=== PATIENT | male | born 1975 | race Caucasian/White ===

== ENCOUNTER 2025-02-01 15:30 | Emergency (ER) | payer BC, SELFPAY ==
--- NOTE | ~2025-02-01 | US_ITS ---
CLINICAL HISTORY: calf pain, swelling Venous duplex ultrasound left lower extremity Comparison: None provided Findings: The visualized deep veins are fully compressible with normal Doppler color flow and spectral tracings. Left peroneal vein not visualized. No popliteal cyst. There is a 1.9 cm x 0.5 cm x 1.2 cm left inguinal lymph node. IMPRESSION: 1. Negative for left lower extremity deep vein thrombosis. 2. Left inguinal lymph node likely reactive but nonspecific. This document has been electronically signed by: Dipika Dao MD on 02/01/2025 17:35:16
[2025-02-01 15:52] VITALS: BP 148/75; PULSE 69; RESP 18; TEMP 36.7; O2SAT 97; BMI 35.5
--- NOTE | 2025-02-01 15:52 | ED.SKABFB ---
HPI - Skin/Abscess/Foreign Bdy General Chief complaint: General Medical Stated complaint: LLL Edema, redness, warm to touch Time Seen by Provider: 02/01/25 17:39 Source: patient and other (program staff) Mode of arrival: ambulatory Limitations: no limitations History of Present Illness ED Provider: Nasima Do PA-C HPI narrative: Patient is a 49 year old male with a history of IV drug use and recurrent left lower leg cellulitis presenting to the emergency department today with left lower leg swelling, pain, and redness. Patient states that he is currently a treatment facility in the area but he is from [place]. Patient states that he has a history of IV drug use and has had left lower leg cellulitis before. Patient states that his left lower leg has been swollen, red, and hot over the last few days. Patient denies any other complaints at this time. Related Data Previous Rx's ?Medication ?Instructions ?Recorded cephalexin 500 mg capsule 500 mg PO Q6H 7 days #28 caps 02/01/25 doxycycline hyclate 100 mg tablet 100 mg PO BID 7 days #14 tabs 02/01/25 Allergies Allergy/AdvReac Type Severity Reaction Status Date / Time No Known Allergies Allergy Verified 02/01/25 15:54 Review of Systems Constitutional: Constitutional: Reports as per HPI Eyes: Eyes: Reports as per HPI ENT: Reports as per HPI Cardiovascular: Cardiovascular: Reports as per HPI Respiratory: Respiratory: Reports as per HPI Gastrointestinal: Gastrointestinal: Reports as per HPI Genitourinary: Genitourinary: Reports as per HPI Musculoskeletal: Musculoskeletal: Reports as per HPI Integumentary/Breasts: Skin/Breast: Reports as per HPI Neurologic: Reports as per HPI Psychiatric: Psychiatric: Reports as per HPI Endocrine: Endocrine: Reports as per HPI Hematologic/Lymphatic: Hematologic/Lymphatic: Reports as per HPI Allergic/Immunologic: Allergic/Immunologic: Reports as per HPI PMFSH Past Medical History Attestation statement: The following information was validated with the patient. (all information validated with the patient's program staff) Source: old records reviewed, nursing notes reviewed and other (patient's program staff provided additional history and confirmed the history provided by the patient. ) Social History Social History Advance Directives: No Advance Directives Information Provided: No Physical Exam Vital Signs: Vital Signs: Last Vital Signs Temp 98.1 F 02/01/25 17:44 Pulse 69 02/01/25 17:44 Resp 18 02/01/25 17:44 BP 148/75 H 02/01/25 17:44 Pulse Ox 97 02/01/25 17:44 O2 Del Method Room Air 02/01/25 17:44 BMI result Body Mass Index 35.5 Const: General: cooperative, no acute distress, alert and awake Nutritional Appearance: well nourished Orientation/consciousness: patient oriented x3 HEENT: Head: Yes normal to inspection and Yes atraumatic Ears: hearing grossly normal bilaterally and external ears normal General nose exam: Normal external nose present, no nasal discharge noted and no epistaxis Face and sinus: Yes normal facial exam, No abrasion and No laceration Mouth: Normal oral and palatal mucosa present, no drooling and no muffled voice Eyes: General: appearance normal, both eyes and all related structures Periorbital: periorbital findings normal Eyelids: Yes eyelids normal Conjunctivae: conjunctivae normal Pupils: Equal, round and reactive pupils present EOM: EOMs intact bilaterally Neck: Neck: Yes normal visual inspection and Yes full ROM Resp: Effort & Inspection: normal respiratory effort and able to speak in complete sentences Neuro: General: patient oriented x3, moves all extremities and CN's II-XI intact bilaterally Cranial nerves: Yes Equal, round and reactive pupils present Cognition (Neuro): normal cognition Extrem: Other: General: Yes full ROM and Yes capillary refill normal Psych: Appearance: grossly normal Mental Status: mental status grossly normal Affect: normal affect Attitude: cooperative Thought process: Normal thought process present Thought content: Normal thought content present Insight: Good insight present (Psych) Course Course Course Narrative: This is an RME: Additional HPI, ROS, PE not included below will be deferred to primary provider. RME assessment and note performed by: Jamia Robison PA-C This is a 65-pdim-qqw-male, with a hx of cirrhosis, who presents to the ER [facility] with a complaint of left leg swelling since yesterday. No recent travel, surgeries, hospitalizations. Plan: us Medical Decision Making Medical Decision Making MDM Narrative: Patient is a 49 year old male with a history of IV drug use and recurrent left lower leg cellulitis presenting to the emergency department today with left lower leg swelling, pain, and redness. Patient's physical exam was as noted in the physical exam portion of this note. Patient's left lower leg US showed no acute process or evidence of DVT. Patient's clinical presentation is most consistent with left lower leg cellulitis. I explained my physical exam findings as well as all test results to the patient and the patient's program staff. I answered all questions asked by the patient and the patient's program staff. I stressed the importance of the patient taking his medication as directed (either prescribed or as the over the counter packaging recommends). I stressed the importance of the patient following up with his primary care provider. I stressed the importance of the patient returning to the emergency department immediately if his symptoms were to worsen or if he were to develop any dizziness, shortness of breath, difficulty breathing, chest pain, blurry vision, loss of vision, nausea, vomiting, abdominal pain, fever, chills, back pain, or any other complaints. Patient verbalized agreement and understanding with this treatment plan and discharge. Differential Diagnosis Differential Diagnoses: The differential diagnosis associated with the presentation includes Left lower leg cellulitis Left lower leg DVT Left lower leg pain Admission/Observation Consideration of admission/observation: Escalation of care including admission/observation considered Patient would have been admitted to the hospital had his work up had any findings where hospital admission was appropriate and his clinical presentation warranted hospital admission. Independent Interpretation I performed an independent interpretation of an: Ultrasound Interpretation: My interpretation is in agreement with the radiologist's impression of this imaging study as written below. CLINICAL HISTORY: calf pain, swelling Venous duplex ultrasound left lower extremity Comparison: None provided Findings: The visualized deep veins are fully compressible with normal Doppler color flow and spectral tracings. Left peroneal vein not visualized. No popliteal cyst. There is a 1.9 cm x 0.5 cm x 1.2 cm left inguinal lymph node. IMPRESSION: 1. Negative for left lower extremity deep vein thrombosis. 2. Left inguinal lymph node likely reactive but nonspecific. This document has been electronically signed by: Dipika Dao MD on 02/01/2025 17:35:16 Dictated By: Dipika Dao MD Signed By: Electronically signed by Dipika Dao MD 02/01/25 7931 Radiology Impression Discussion of test interpretation with radiology: I have reviewed the radiologist's reading. Independent Historian Clinical information obtained from an independent historian. History obtained from or confirmed by: Other (patient's program staff provided additional history and confirmed the history provided by the patient. ) Prescription Management I considered prescription management with: Antibiotic (patient prescribed antibiotics for left lower leg cellulitis) Discharge Plan Discharge Clinical Impression: Cellulitis Patient Disposition: Home, Self-Care Instructions: Cellulitis (ED) Additional Instructions: Your left lower extremity ultrasound showed no evidence of blood clot. I believe you have cellulitis (skin infection). Please take your antibiotics as prescribed. AVOID direct sunlight while on the Doxycycline and do NOT take it with milk. IF you are prescribed home medications and/or you are taking over the counter medications at home - it is very important you continue to do so as prescribed / directed unless told otherwise by a healthcare provider. Follow up with your primary care provider. Do your best to stay well hydrated and rest. Return to the emergency department immediately if your symptoms worsen or if you develop any numbness, tingling, dizziness, shortness of breath, difficulty breathing, chest pain, blurry vision, loss of vision, nausea, vomiting, abdominal pain, fever, chills, back pain, or any other complaints. If you do not have a primary care provider - call any of the below numbers to establish and follow up with a primary care provider. [facility] Primary Care ([place]) [phone] [place] [address], [address] [facility] Primary Care ([facility]) [phone] [place] [address], [address] [facility], [address] [facility] Primary Care ([facility]) [phone] [place] [address], [address] [facility], [address] [facility] Primary Care ([place]) [phone] [place] [address] 2 [facility], [address] [facility] Family Medicine [phone] 140 [facility], [address] Please see the information below about our Patient Portal. If you are not yet enrolled in the [facility] Patient Portal, you will receive an enrollment email invitation following your visit to any [facility] care setting. You may also self-enroll in the Patient Portal by visiting our website: [email or web address] The following information is required to access the Patient Portal: - Your [facility] Medical Record Number - Your personal home email address (must match what is in your electronic medical record, Registration staff can assist with this) - Name - Date of Capabilities of the Patient Portal: - Message some providers - View upcoming appointments - Access your health summary, medical history, and visit history - View current conditions and allergies - View procedure and lab results - View your medications, including guidelines, side effects, and precautions - Complete pre-appointment questionnaires requested by your provider - Ready summary reports of your office visits and procedures To access the Patient Portal Mobile [employer], follow these directions: - Search WiFi Rail in the [employer] Store or aka-aki networks Store - Download the [employer]ley - Search for [facility] - Enter your login/password Prescriptions: New cephalexin 500 mg capsule 500 mg PO Q6H 7 Days Qty: 28 0RF doxycycline hyclate 100 mg tablet 100 mg PO BID 7 Days Qty: 14 0RF Interventions: ED Discharge Assessment Last Done: 02/01/25 17:44 Discharge Date/Time: 02/01/25 18:05 Print Language: Luxembourger
[2025-02-01 17:44] VITALS: BP 148/75; PULSE 69; RESP 18; TEMP 36.7; O2SAT 97
--- OUTSIDE RECORDS SUMMARY | 2025-02-01 23:31 | XMS_ITS | Clinical Summary ---
Author Organization [facility] nter Address [address], [place] Care Team Providers Care Cinder Snapper Name Role Phone Megan Jonas MD Primary Care Provider [phone] Allergies No known active allergies Medications * This document contains information received from the source organization and may not represent a complete record from that organization. hydrOXYzine (VISTARIL) 25 MG capsuleIndicati ons:anxiety Take 1 capsule (25 mg total) by mouth 2 (two) times a day as needed for anxiety Indications: anxiety. 2 9 Active buPROPion XL (WELLBUTRIN XL) 300 MG 24 hr tabletIndicatio ns:depression Take 1 tablet (300 mg total) by mouth 1 (one) time a day Indications: depression. Active methadone (DOLOPHINE) 50 mg/5 mL solutionIndicat ions:opioid dependence Take 12.5 mL (125 mg total) by mouth 1 (one) time a day Indications: opioid dependence. Active gabapentin (NEURONTIN) 800 MG tabletIndicatio ns:sciatic nerve pain Take 1 tablet (800 mg total) by mouth 3 (three) times a day Indications: sciatic nerve pain. 1 Active fluticasone propionate (FLONASE) 50 mcg/actuation nasal sprayIndication s:allergies Administer 2 sprays into each nostril 1 (one) time a day Indications: allergies. 1 Active QUEtiapine (SEROquel) 100 MG tabletIndicatio ns:mood Take 1 tablet (100 mg total) by mouth at bedtime Indications: mood. Active QUEtiapine (SEROquel) 25 MG tabletIndicatio ns:mood Take 1 tablet (25 mg total) by mouth 1 (one) time each day in the morning Indications: mood. Active amLODIPine (NORVASC) 10 MG tabletIndicatio ns:hypertension Take 1 tablet (10 mg total) by mouth 1 (one) time a day Indications: hypertension. Active omeprazole (PriLOSEC) 40 MG capsuleIndicati ons:acid reflux Take 1 capsule (40 mg total) by mouth 1 (one) time a day Indications: acid reflux. Active furosemide (LASIX) 20 mg tabletIndicatio ns:edema Take 1 tablet (20 mg total) by mouth daily as needed Indications: edema. Active potassium chloride (K-DUR) 10 MEQ CR tabletIndicatio ns:supplement Take 1 tablet (10 mEq total) by mouth daily as needed (take with furosemid) Indications: supplement. Active rOPINIRole (REQUIP) 0.25 MG tabletIndicatio ns:restless leg syndrome Take 1-2 tablets (0.25-0.5 mg total) by mouth at bedtime Indications: Restless Legs Syndrome. Active sertraline (ZOLOFT) 100 MG tabletIndicatio ns:depression Take 1 tablet (100 mg total) by mouth 1 (one) time a day Indications: depression. Active naphazoline HCl/glycerin (CLEAR EYES COOLING COMFORT OPHT)Indication s:dry eyes Administer 1 drop into both eyes 2 (two) times a day as needed Indications: dry eyes. Active Active Problems Problem Noted Date Diagnosed Date Drug overdose 03/26/2024 Alcoholic intoxication without complication 10/23 Elevated liver function tests 03/10/2018 Alcohol withdrawal 03/10/2018 Immunizations Immunization Administration Dates Next Due Influenza Quadrivalent 6m+ IM 10/23/2019, 019 Pfizer Sars-cov-2 Vaccination 07/25/2020 Family History Medical History Relation Name Comments No Known Problems Brother Liver disease Maternal Grandfather No Known Problems Maternal Grandmother Hypertension Mother Relation Name Status Comments Brother Alive Maternal Grandfather Maternal Grandmother Alive Mother Alive Social History Tobacco Use Types Packs/Day Years Used Date Smoking Tobacco: Every Day Cigarettes Smokeless Tobacco: Current Alcohol Use Standard Drinks/Week Comments Not Currently 0 (1 standard drink = 0.6 oz pur e alcohol) Domestic Partner Violence Answer Date R ecorded Do you feel safe in your home? Unrecognized valu e 03/26/2024 Domestic Abuse Screening - Safe in relationship Not on file 03/26/2024 Alcohol Use- Patient History Answer Aron e Recorded Smoking Tobacco Use Never Assessed 10/27/2023 Smokeless Tobacco Use Unknown 10/27/2023 Passive Exposure Not on file 10/27/2023 Sex and Gender Information Value Date Recorded Sex Assigned at Male 03/26/2024 7:37 PM EST Legal Sex Male 4:55 PM EST Gender Identity Male 03/26/2024 7:37 PM EST Sexual Orientation Not on file Last Filed Vital Signs Vital Sign Reading Time Taken Comments Blood Pressure 148/88 03/27/2024 1:00 PM EST Pulse 66 03/27/2024 1:00 PM EST Temperature 36.4 C (97.5 F) 03/27/2024 7:42 AM EST Respiratory Rate 17 03/27/2024 1:00 PM EST Oxygen Saturation 99% 03/27/2024 1:00 PM EST Inhaled Oxygen Concentration - - Weight 110 kg (242 lb 8.1 oz) 02/19/2024 7:05 PM EST Height 172.7 cm (5' 8 ) 08/23/2023 1:09 PM EDT Body Mass Index 36.87 08/23/2023 1:09 PM EDT Plan of Treatment Health Maintenance Due Date Last Done Comments CT Colonography 1977 Colon Cancer Screening Year Sigmoidoscopy 1977 Colonoscopy 1977 Colorectal Cancer Screening 1977 FIT 1977 DTAP,Tdap and Td Vaccines (5 - Tdap) 1988 05/15/1982, 10/01/1980, 08/31/1980, Additional history exists Tobacco Counseling 1989 Pneumococcal Vaccine: Peds (0-5Y) & At-Risk Patients (6- 49Y) (1 of 2 - PCV) 1996 Cologuard DNA Screen for Colon CA 2022 Fecal Occult Blood Testing 2022 Depression Screening Yearly 02/23/2024 Influenza Vaccine 09/22/2024 10/23/2019, , 11/24/2018 COVID-19 Vaccine (2024-26 season) 2024 05/30/2023, 03/20/2021, 08/16/2020, Additional history exists BH Annual Physical 10/04/2025 10/03/2024, 0 10/03/2024, 04/04/2020, Additional history exists HIV Screening Completed 06/26/2020 HIB Vaccines Aged Out No longer eligi ble based on patient's age to complete this topic Rotavirus Vaccines Aged Out No longer eligible based on patient's age to complete this topic Procedures Procedure Name Priority Date/Time Associated Diagnosis Comments HIV-1/2 SCREEN WITH REFLEX CONFIRMATION Routine 06/26/2020 6:25 AM EDT from Last 3 Months or Most Recently Relevant to Health Maintenance Results * HIV-1/2 screen with reflex confirmation (06/26/2020 6:25 AM EDT) HIV Screen 4th Generation wRfx Non Reactive Non Reacti [facility] 06/26/2020 6:25 AM EDT 06/26/2020 us Gloria [facility] BLOOD ORDERABLES Final Re sult [facility] from Last 3 Months or Most Recently Relevant to Health Maintenance Insurance [facility] [address] Member Subscriber Plan / Payer (Ef fective 2023-Present) Name:Benedicto Prajapati Relation to Subscriber:Self Name:Benedicto Prajapati Payer ID:Not on file Type:Not on file Address: [facility] [address] [place], [place] Advance Directives For more information, please contact: [phone] Documents on File Type Date Recorded Patient Automobile Wrecker Expl anation Power of Knit Tubing Dyer 03/26/2024 7:41 PM Power of Knit Tubing Dyer 08/23/2023 3:55 PM Advance Directives 08/23/2023 3:55 PM Power of Knit Tubing Dyer 07/13/2023 10:31 AM Advance Directives 07/13/2023 10:31 AM Advance Directives 12/08/2022 12:29 AM Power of Knit Tubing Dyer 12/08/2022 12:29 AM Advance Directives 12/19/2021 12:36 AM Power of Knit Tubing Dyer 12/19/2021 12:36 AM Advance Directives 05/28/2021 10:58 AM Power of Knit Tubing Dyer 05/28/2021 10:58 AM Advance Directives 05/08/2021 11:40 AM Power of Knit Tubing Dyer 04/22/2021 3:28 PM Power of Knit Tubing Dyer 08/29/2020 4:38 PM Advance Directives 08/29/2020 4:38 PM * Full Code (Latest Code Status on File) Date Activated Date Inactivated Comments 03/26/2024 9:00 PM 03/27/2024 5:14 PM * Full Code Date Activated Date Inactivated Comments 11/06/2018 1:02 PM 11/11/2018 6:10 PM * Full Code Date Activated Date Inactivated Comments 03/10/2018 6:39 PM 03/14/2018 7:17 PM Care Teams Cinder Snapper Relationship Specialty Start Date End Date Megan Jonas MD [address] [place] [address] PCP - General Family Medicine 08/23/23
--- OUTSIDE RECORDS SUMMARY | 2025-02-01 23:31 | XMS_ITS | Encounter Summary ---
Author Organization [facility] Address [address] [place], [place] Care Team Providers Care Electrical Products Engineer Name Role Phone Megan Jonas MD Primary Care Provider [phone] Encounter Details Date Type Department Care Team (Late st Contact Info) Description 08/14/2020 Chart Prep [facility] Information Management [address] [place], [place] [phone] Ciarra Cloud MD Social History Tobacco Use Types Packs/Day Years Used Date Smoking Tobacco: Every Day Cigarettes Smokeless Tobacco: Current Alcohol Use Standard Drinks/Week Comments Not Currently 0 (1 standard drink = 0.6 oz pur e alcohol) Sex and Gender Information Value Date Recorded Sex Assigned at Male 03/26/2024 7:37 PM EST Legal Sex Male 4:55 PM EST Gender Identity Male 03/26/2024 7:37 PM EST Sexual Orientation Not on file documented as of this encounter Functional Status * BSA (Calculated - sq m) Answer Date of Assessment Author 2.24 08/14/2020 3:08 PM EDT Jasmyn Marr LPN * Question Answer Date of Assessment Author Pain Score 0 08/14/2020 3:08 PM EDT Jasmyn Johnson LPN * Is the patient deaf or have serious difficulty hearing? Answer Date of Assessment Author No 11/06/2018 8:47 PM EDT Jade Echols RN * Is the patient blind or have serious difficulty seeing, even when wearing glasses? Answer Date of Assessment Author No 11/06/2018 8:47 PM EDT Jade Echols RN * Does the patient have serious difficulty walking, climbing stairs, or have extremity weakness? Answer Date of Assessment Author No 11/06/2018 8:47 PM EDT Jade Echols RN * Does the patient have difficulty dressing, grooming, feeding, bathing, or toileting? Answer Date of Assessment Author No 11/06/2018 8:47 PM EDT Jade Echols RN * Because of a physical, mental, or emotional condition, does the patient have difficulty doing errands alone? Answer Date of Assessment Author No 11/06/2018 8:47 PM EDT Jade Echols RN documented as of this encounter Mental Status * Question Answer Entry Date Author Pain Score 0 08/14/2020 3:08 PM EDT Reinier nieto, Jasmyn Kumari LPN * Because of a physical, mental, or emotional condition, does the patient have serious difficulty concentrating, remembering, or making decisions? Answer Entry Date Author No 11/06/2018 8:47 PM EDT Jade Echols RN documented in this encounter Plan of Treatment Not on file documented as of this encounter Visit Diagnoses Not on filedocumented in this encounter Additional Health Concerns Infection Onset Date Last Indicated Resolved Time Rule Out Influenza 12/07/2022 12/07/2022 4:57 PM EDT Rule Out COVID-19 12/07/2022 12/07/2022 12/07/2022 4:57 PM EDT documented as of this encounter Care Teams Electrical Products Engineer Relationship Specialty Start Date End Date Megan Jonas MD [address] [place] [address] PCP - General Family Medicine 08/23/23 documented as of this encounter
--- OUTSIDE RECORDS SUMMARY | 2025-02-01 23:31 | XMS_ITS | Patient Health Record ---
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 [place] Primary Care Provider Iza Ibarra Unavailable [phone] Agueda Schreiber Unavailable [phone] Allergies No Known Allergies Results Component Value Reference Range Notes Rapid Strep Reviewed date:11/30/2024 12:48:59 PM Interpretation: Performing Lab: Notes/Report: STREP NEG NEG - POS Rapid Flu Reviewed date:11/30/2024 12:48:38 PM Interpretation: Performing Lab: Notes/Report: Influenza NEG NEG - POS Reason For Referral No Information Medications Medication SIG (Take, Route, Frequency, Duration) Notes Start Date End Date Status Albuterol Sulfate HFA 108 (90 Base) MCG/ACT 1 puff as needed for cough/wheeze Inhalation every 4 hrs; Duration: 14 days 12/04/2024 Active Zoloft Active Methadone HCl Active Adderall Active Gabapentin Active Wellbutrin XL Active SEROquel Active Social History Tobacco Use: Social History Observation Description Date Details (start date - stop date) Current Smoker NA - NA Tobacco Control (Standard) Question Answer Notes Tobacco use: Current smoker Problems Problem Type SNOMED Code ICD Code Onset Dates Problem Status W/U Status Risk Notes Problem Asthma without status asthmaticus (40572666) RAD (reactive airway disease) (J45.909) Active confirmed Problem Elevated blood pressure (84767128) Elevated blood pressure (I10) Active confirmed Vital Signs Heart Rate 61 /min 12/04/2024 Temperature 98.6 degrees Fahrenheit 12/04/2024 Respiratory Rate 22 /min 12/04/2024 Oximetry 96 % 12/04/2024 Blood pressure diastolic 95 mm Hg 12/04/2024 Weight-kg 100.1 kg 12/04/2024 Blood pressure systolic 149 mm Hg 12/04/2024 Weight 220.68 lbs 12/04/2024 Encounters Encounter Location Date Provider Diagnosis [facility] [address] [facility] [place], [place] 11/30/2024 Iza Knott Acute URI J06.9 ; SO B (shortness of breath) R06.02 ; Viral syndrome B34.9 and Body aches R52 [facility] [address] [facility] [place], [place] 12/04/2024 Agueda Schreiber RAD (reactive airway disease) J45.909 ; Bacterial infection A49.9 and Elevated blood pressure I10 Assessments Encounter Date Diagnosis (ICD Code) Assessment Notes Treatment Notes Treatment Clinical Notes Section Notes 11/30/2024 SOB (shortness of breath) (ICD-10 - R06.02) 11/30/2024 Acute URI (ICD-10 - J06.9) We discussed your symptoms, including difficulty breathing, headache, chills, body aches, nausea, and mucus drainage: - Your flu and strep tests were negative, and your symptoms are consistent with a viral illness. There are many viruses that we do not routinely test for, so this is likely the cause of your symptoms. - Although your COVID test was negative, I recommend retesting after 2 days if your symptoms persist, as it may still be COVID. We discussed your treatment plan: - I prescribed a cough tablet to help with your symptoms. Please take one dose at night. - Use Flonase nasal spray to help dry out your nasal passages. If it causes excessive dryness or nosebleeds, stop using it. - I prescribed an albuterol inhaler to help with chest tightness. Follow the instructions on the inhaler for proper use. We discussed work accommodations: - I provided a work note excusing you from work for today and tomorrow. Please use this time to rest and recover. Follow-up instructions: - If your symptoms worsen or do not improve, please follow up with your primary care physician. - Retest for COVID in 2 days if you are not feeling better. Please take care and rest as much as possible drink plenty of fluids. Acute URI, notes: You have been diagnosed with a viral upper respiratory infection. These infections do not respond to antibiotics and resolve with supportive care. You should drink plenty of fluids and rest at home until you start feeling better. You can take an qghy-qpx-szcszfj pain reliever/fever electric organ assembler as directed on the bottle. Most viral infections last 5 to 10 days. You may return to the clinic for any worsening symptoms. See your primary care doctor for symptoms that do not resolve within 10 days. If you develop any severe symptoms, such as trouble breathing, please proceed to the Emergency Room. 12/04/2024 RAD (reactive airway disease) (ICD-10 - J45.909) 12/04/2024 Bacterial infection (ICD-10 - A49.9) 12/04/2024 Elevated blood pressure (ICD-10 - I10) check blood pressure at home and if running over 130/80 follow up with primary care for further evaluation 11/30/2024 Viral syndrome (ICD-10 - B34.9) 11/30/2024 Body aches (ICD-10 - R52) 11/30/2024 Other Access your visit summary and after-visit care instructions via our online Patient Portal by visiting [email or web address]. Smoking is exceedingly harmful to your heart and lung health. Please call 0-629-UKBCNOW or visit [email or web address] to help quit, and improve your long-term health. The home is the most common place where children and non-smoking adults are exposed to secondhand smoke. Secondhand smoke causes an increased risk of asthma, certain cancers or infections, and heart disease in children and adults. Please follow up with your primary care provider if any other concerns: If you do not have a primary care provider you can obtain one by: a) Calling [phone] or b) Going to [email or web address] 12/04/2024 Other We discussed your respiratory symptoms, including cough, wheezing, dizziness, and difficulty breathing: - You were diagnosed with reactive airway disease, a bacterial infection, and an upper respiratory infection. - I administered your first doses of prednisone (oral steroid) and an antibiotic during today?s visit. - Please take prednisone once daily for the next 5 days. Your next dose should be taken tomorrow. - Take the antibiotic twice daily for 5 days. Your next dose should be taken tonight. - Use the albuterol inhaler as needed for cough and wheezing. Take 2 puffs every 4 to 6 hours as needed. Do not exceed the recommended dosage. - I provided a breathing treatment during today?s visit to help with your symptoms. - If your symptoms worsen, such as increased difficulty breathing, chest pain, or severe dizziness, please go to the emergency department immediately. - If your symptoms do not improve within the next 1 to 2 days, please return to the office for further evaluation. We discussed your work concerns: - I will provide a note excusing you from work for tomorrow. Please rest and focus on your recovery. Your prescriptions have been sent to your preferred [facility] pharmacy at [address] [place] [address]. Please arrange for someone to pick them up if you are unable to drive. Access your visit summary and after-visit care instructions via our online Patient Portal by visiting [email or web address]. Smoking is exceedingly harmful to your heart and lung health. Please call 0-665-MPHS-NOW or visit [email or web address] to help quit, and improve your care home health. The home is the most common place where children and non-smoking adults are exposed to secondhand smoke. Secondhand smoke causes increased risk of asthma, certain cancers or infections, and heart disease in children and adults. Please follow up with your primary care provider if any other concerns: If you do not have a primary care provider you can obtain one by: a) Calling [phone] or b) Going to [email or web address] Plan Of Treatment No Information Insurance Providers Payer Name Payer Address Payer Phone Subscriber Number Group Number Insured Name Patient Relationship to Insured Coverage Start Date Coverage End Date [facility] [address] [facility] [phone] [id number] [address] [place] Self - patient is the insured [facility] [address] [address] [place] [address] [id number] [employer] [place] Self - patient is the insured Medications Administered Medication Instructions Date of Administration Dosage Notes Ipratropium-Albuterol 12/04/2024 3 mL PredniSONE 12/04/2024 40 mg Amoxicillin 12/04/2024 875 mg Medical (General) History Medical History History ICD Code anxiety depression substance abuse hypertension liver cirrhosis opiate dependence sciatica ADHD
--- OUTSIDE RECORDS SUMMARY | 2025-02-01 23:31 | XMS_ITS | Patient Health Record ---
Author Organization [facility] Address [address] [place] [address] Care Team Providers Care Director Of Knowledge Management Name Role Phone Laila Reynolds Unavailable [phone] Allergies No Known Allergies Reason For Referral No Information Medications Medication SIG (Take, Route, Frequency, Duration) Notes Start Date End Date Status PredniSONE 20 MG Tablet 3 tabs QD x 3 da ys, 2 tabs QD x 2 days, 1 tab QD x 1 day Orally Once a day; Duration: 6 days 02/22/2020 Not-Taking/PRN hydrOXYzine HCl Acti ve Methadone HCl Active Wellbutrin Active SEROquel Active traZODone HCl Not-Ta jonathan/PRN Gabapentin Active Social History Tobacco Use: Social History Observation Description Date Details (start date - stop date) Current Smoker NA - NA Social History Tobacco Use: Social Info Question Answer Notes Tobacco Use/Smoking Are you a current smoker Additional Details Category Social Info Options Details Drugs/Alcohol: Do you drink alcohol? Yes Plan Of Treatment Pending Test Test Name Order Date X ray : Knee, left 02/22/2020 Insurance Providers Payer Name Payer Address Payer Phone Subscriber Number Group Number Insured Name Patient Relationship to Insured Coverage Start Date Coverage End Date [facility] [address] [address] [place] [phone] [id number] Benedicto Prajapati Self - patient is the insured Medical (General) History Medical History History ICD Code depression neuropathy opioid addiction Surgical History Surgery Date(Month/Year)
== END 2025-02-01 18:05 | disposition home or self-care (01) ==
PROVIDERS: Emergency Provider Student in an Organized Health Care Education/Training Program; PCP Psychiatry & Neurology Psychiatry
DX: R60.0 Localized edema (principal)
CPT/HCPCS: 93971; 99282; 99284

== ENCOUNTER → 2025-02-01 15:56 | Outpatient (BNV) | payer SELFPAY | PROVIDERS: Emergency Provider Student in an Organized Health Care Education/Training Program; Visit Provider Specialist | DX: R22.42 Localized swelling, mass and lump, left lower limb (principal) | CPT/HCPCS: 93971 ==